=== PATIENT | female | born 1950 | race Caucasian/White ===

== ENCOUNTER 2022-01-30 09:08 | Emergency (ER) | payer OTHER ==
[2022-01-30 09:31] VITALS: TEMP 97.5; BMI 27.1
[2022-01-30] MEDS ORDERED: MECLIZINE HCL 25 MG TABLET (FP) PO ONE (09:53)
[2022-01-30] MEDS ORDERED: SODIUM CHLORIDE 0.9% 500 ML INFUS.BAG IV ONE (10:10)
[2022-01-30] MEDS ORDERED: MECLIZINE HCL 25 MG TABLET (FP) ONE (10:11)
[2022-01-30 10:25] LABS: ALBUMIN 3.8 g/dl (3.4-5.0); BILIRUBIN,TOTAL 0.5 mg/dl (0.2-1); CALCIUM 9.1 mg/dl (8.5-10); CREATININE 0.7 mg/dl (0.55-1.3); TOT PROT 6.7 g/dl (6.4-8.2)
[2022-01-30 10:55] LABS: BASO % 0.8 % (0-2.0); EOS % 0.7 % (0-4.5); HEMATOCRIT 44.5 % (32.4-45.2); HEMOGLOBIN 14.5 GM/dL (10.7-15.3); LYMPH % 13.1 % (8-40); MCH 29.5 pg (25.7-33.7); MCHC 32.7 g/dl (32.0-36.0); MEAN CELL VOLUME 90.3 fl (80-96); MONO % 4.4 % (3.8-10.2); PLATELET COUNT 226 10^3/uL (134-434); RBC 4.92 M/mm3 (3.60-5.2); WHITE BLOOD COUNT 8.8 K/mm3 (4.0-10.0)
[2022-01-30 14:41] VITALS: BP 136/62; PULSE 65
[2022-01-31 13:07] LABS: SARS-CoV-2 NAA Not Detected (Not Detected)
== END 2022-01-30 14:47 | disposition left against medical advice (07) ==
LOC: FER 09:08
DX: R00.2 Palpitations (principal); R42 Dizziness and giddiness
CPT/HCPCS: 36415; 70450-TC; 71045-TC-FY; 76775-TC; 80053; 81003; 84484; 85025; 87086; 93005; 93308; 99283-25; C9803; U0003; U0005